=== PATIENT | female | born 1965 | race Caucasian/White ===

== ENCOUNTER 2017-10-16 19:48 | Emergency (ER) | payer OTHER ==
[2017-10-16] MEDS ORDERED: IBUPROFEN 400 MG TABLET (FP) PO ONE ×2 (19:59→20:42)
[2017-10-16] MEDS ORDERED: ACETAMINOPHEN 325 MG TABLET (FP) ONE (20:00)
--- NOTE | 2017-10-16 20:03 | PDOC ---
Rapid Medical Evaluation Time Seen by Provider: 10/16/17 19:56 Medical Evaluation: Allergies Allergy/AdvReac Type Severity Reaction Status Date / Time codeine Allergy Verified 10/16/17 19:56 Penicillins Allergy Verified 10/16/17 19:56 Sulfa (Sulfonamide Allergy Verified 10/16/17 19:56 Antibiotics) 10/16/17 19:56 The patient presents with a chief complaint of: Congestion, fever, body aches, sore throat and cough for 7 days. Family members sick with similar symtpoms Hx of complete hysterectomy I have performed a brief in-person evaluation of this patient; Pertinent physical exam findings: Fever 103. HR 103 regular CTAB I have ordered the following: Strep/Flu, Motrin The patient will proceed to the ED for further evaluation.
[2017-10-16 20:07] VITALS: BMI 27.1
[2017-10-16] MEDS ORDERED: ACETAMINOPHEN 325 MG TABLET (FP) PO ONE (20:11)
--- NOTE | 2017-10-16 20:31 | PDOC ---
Attending Attestation - HPI HPI: 10/16/17 21:04 The patient is a 52 year old female with history of DM, HIV who presents to ED complaining of approximately 1 week of nonproductive cough, chest congestion, nasal congestion, diffuse myalgia, and ever. She also reports some intermittent nausea and one episode of vomiting. She endorses family members sick with similar symptoms. No chest pain. - Physicial Exam PE: 10/16/17 21:07 Constitutional: Awake, alert, oriented. No acute distress. Warm to touch. Head: Normocephalic. Atraumatic Eyes: PERRL. EOMI. Conjunctivae are not pale. ENT: Mucous membranes are moist and intact. Uvula midline. Neck: Supple. Full ROM. No lymphadenopathy. Cardiovascular: Tachyacardic. Regular rhythm. S1, S2 regular. Distal pulses are 2+ and symmetric. Pulmonary/Chest: No evidence of respiratory distress. Mild end expiratory wheezing at the bilateral apices. Abdominal: Soft and non-distended. There is no tenderness. No rebound, guarding or rigidity. No organomegaly. No palpable masses. Good bowel sounds. Back: No CVA tenderness. Musculoskeletal: No edema. No cyanosis. No clubbing. Full range of motion in all extremities. Nocalf tenderness. Radial/pedal pulses are intact and 2+ bilaterally Skin: Skin is warm and dry. No petechiae. No purpura. Neurological: Alert and oriented to person, place, and time. Cranial nerves II -XII are grossly intact. Normal speech. Strength is grossly symmetric. No sensory deficits. Psychiatric: Good eye contact. Normal interaction, affect and behavior. - Medical Decision Making 10/16/17 21:09 Documentation prepared by Perla Marte, acting as biomedical engineering aide for Briana Resendez DO. <Perla Marte - Last Filed: 10/16/17 21:04> - Resident Resident Name: Maikel Walker - ED Attending Attestation I have performed the following: I have examined & evaluated the patient, The case was reviewed & discussed with the resident, I agree w/resident's findings & plan, Exceptions are as noted - Medical Decision Making 10/16/17 20:31 I, Dr. Briana Resendez DO, attest that this document has been prepared under my direction and personally reviewed by me in its entirety. I further attest, that it accurately reflects all work, treatment, procedures and medical decision -making performed by me. 10/16/17 21:38 a/p: 52yo female with cough - nonproductive, fevers x 1 week -did not have the flu shot -suspect influenza given body aches and cough x 1 week -will check strep as well given recent contact with strep -will give albuterol for slight wheeze -viral load <50, cd4 = 1000 -compliant with HIV meds -nontoxic in appearance -d/c to home <Briana Resendez - Last Filed: 10/16/17 21:40>
--- NOTE | 2017-10-16 21:02 | PDOC ---
History of Present Illness - General Chief Complaint: Respiratory Stated Complaint: FATIGUE/ S.O.B Time Seen by Provider: 10/16/17 19:56 - History of Present Illness Initial Comments: 10/16/17 20:50 The patient is a 52 year old female with a history of DM and HIV who presents for evaluation of cough, body aches, nasal congestion, and chest congestion. The patient reports that she is visiting from [place] and has been experiencing nonproductive cough, body aches, nasal congestion, and chest congestion over the past 7 days. She also notes associated fevers throughout this time as well. She noted that she has been intermittently nauseated and had one episode of non-bloody, non-bilious vomiting 7 days ago. She notes that she has family that is experiencing similar symptoms. She denies chills, chest pain, abdominal pain, or changes with urination or bowel movements. Past History - Past Medical History Allergies/Adverse Reactions: Allergies Allergy/AdvReac Type Severity Reaction Status Date / Time codeine Allergy Verified 10/16/17 19:56 Penicillins Allergy Verified 10/16/17 19:56 Sulfa (Sulfonamide Allergy Verified 10/16/17 19:56 Antibiotics) Home Medications: Ambulatory Orders Abacavir/Dolutegravir/Lamivudi [Triumeq Tablet] 1 each PO DAILY 10/16/17 Albuterol Sulfate Inhaler - [Ventolin HFA Inhaler -] 1 - 2 inh PO QID #1 inhaler 10/16/17 Atorvastatin Ca [Lipitor] 10 mg PO HS 10/16/17 Gabapentin [Neurontin] 600 mg PO BID 10/16/17 Metformin HCl [Metformin HCl ER] 500 mg PO DAILY 10/16/17 Asthma: Yes COPD: No Diabetes: Yes (2) Hypercholesterolemia: Yes Other medical history: neuropathy - Suicide/Smoking/Psychosocial Hx Smoking History: Former smoker Have you smoked in the past 12 months: No Information on smoking cessation initiated: No Review of Systems - Review of Systems Comments:: 10/16/17 20:54 Constitutional: Fevers, body aches. No chills, fatigue, HEENT: Nasal congestion. No Rhinorrhea, visual changes Cardiovascular: Chest congestion. No chest pain, syncope, palpitations, lightheadedness Respiratory: Cough. No SOB, Hemoptysis, Gastrointestinal: No Abdominal pain, Nausea, Vomiting, Constipation, Diarrhea, Melena Genitourinary: No Dysuria, Frequency, Urgency, Hesitancy, Hematuria, Flank pain Musculoskeletal: No Myalgia, arthralgia Skin: No rashes, bruising, pallor Neurologic: No Headache, Dizziness, Numbness, Weakness, or Tingling Psychiatric: No Hallucinations. No SI or HI *Physical Exam - Vital Signs Last Vital Signs Temp Pulse Resp BP Pulse Ox 102.9 F H 112 H 20 125/64 96 10/16/17 19:48 10/16/17 19:48 10/16/17 19:48 10/16/17 19:48 10/16/17 19:48 - Physical Exam Comments: 10/16/17 21:03 General Appearance: Nourished. No Apparent Distress HEENT: EOMI, LOKESH. No Pharyngeal Erythema, Tonsillar Exudate, Tonsillar Erythema Neck: No Cervical Lymphadenopathy Respiratory/Chest: Lungs Clear, Normal Breath Sounds. No Crackles, Rales, Rhonchi, Wheezing Cardiovascular: Regular Rhythm, Regular Rate. No Murmur, Gallops, Rubs Gastrointestinal/Abdominal: Normal Bowel Sounds, Soft. No Guarding, Rebound, Tenderness Musculoskeletal: No CVA Tenderness Extremity: Normal Capillary Refill Integumentary: Normal Color, Dry, Warm Neurologic: Fully Oriented, Alert, Normal Mood/Affect, Normal Response, ED Treatment Course - RADIOLOGY Radiology Studies Ordered: Category Date Time Status CHEST PA & LAT [RAD] Stat Radiology 10/16/17 20:47 Ordered - Medications Given in the ED: ED Medications Discontinued Medications Generic Name Dose Route Start Last Admin Trade Name Freq PRN Reason Stop Dose Admin Acetaminophen 650 mg 10/16/17 20:11 10/16/17 20:11 Tylenol - PO 10/16/17 20:12 650 mg NOW ONE Administration Medical Decision Making - Medical Decision Making 10/16/17 21:06 The patient is a 52 year old female with a history of DM and HIV who presents for evaluation of cough, body aches, nasal congestion, and chest congestion. Differential includes but is not limited to: viral URI, influenza, RSV, pneumonia. Given the patient's sick contacts and physical exam, it is likely her symptoms are due to a viral URI. The patient reports that her viral load is less than 40 and her CD4 count is 1000. We will send an influenza and rsv swab as well as obtain a chest plain film to evaluate for other etiologies. We will treat with motrin and duoneb here in the ED. We will continue to monitor and reassess. 10/16/17 21:52 Chest plain film is unremarkable as preliminarily read by ER physician pending official read. Influenza A swab was positive. The patient's symptoms are likely due to influenza. We are comfortable discharging the patient home at this time with primary care provider. We discussed the results and the plan with the patient who voiced understanding and is agreeable with the plan. *DC/Admit/Observation/Transfer Diagnosis at time of Disposition: Influenza A - Discharge Dispostion Disposition: HOME Condition at time of disposition: Good Admit: No - Prescriptions Prescriptions: Albuterol Sulfate Inhaler - [Ventolin HFA Inhaler -] 1 - 2 inh PO QID #1 inhaler - Referrals Referrals: STAFF,NOT ON [Primary Care Provider] - - Patient Instructions Printed Discharge Instructions: DI for Influenza -- Adult Additional Instructions: Please return to the ER if you experience concerning or worsening symptoms including worsening chest pain, difficulty breathing, or worsening fevers. Your flu swab was positive for influenza here in the ER. Your chest x-ray was normal. Please continue to stay well hydrated and use ibuprofen or tylenol to help control your fevers. Please call to schedule a follow up appointment with your primary care provider within 1 week to discuss your ER visit. - Post Discharge Activity
[2017-10-16] MEDS ORDERED: ALBUTEROL SO4 2.5/IPRATROPIUM 0.5 INH SOL 3 ML VIAL.NEB. NEB ONE (21:03)
[2017-10-16 22:09] VITALS: BP 106/69; PULSE 84; TEMP 98.6
== END 2017-10-16 22:09 | disposition home or self-care (01) ==
LOC: JER 19:48
PROC: 3E0F7GC Introduction of Other Therapeutic Substance into Respiratory Tract, Via Natural or Artificial Opening (ICD-10-PCS; principal; 2017-10-16)
DX: J10.1 Influenza due to other identified influenza virus with other respiratory manifestations (principal); E11.9 Type 2 diabetes mellitus without complications; Z79.84 Long term (current) use of oral hypoglycemic drugs; Z21 Asymptomatic human immunodeficiency virus [HIV] infection status
CPT/HCPCS: 71046-TC; 87070; 87430; 87804; 99283-25